=== PATIENT | male | born 1980 | race Caucasian/White ===

== ENCOUNTER 2017-05-06 11:00 | Emergency (ER) | payer OTHER ==
[~2017-05-06] VITALS: Ht 180.3 cm; Wt 93.3 kg
[~2017-05-06 11:00] MED LIST: IBUP800T23 PO; ROBA750T3 PO
[2017-05-06 11:06] VITALS: BP 119/80; PULSE 72; RESP 16; TEMP 97.8; O2SAT 97
[2017-05-06] MEDS ORDERED: SODIUM CHLOR 0.9% 1000 ML INJ 1,000 ML IV SCH (11:20)
--- NOTE | 2017-05-06 11:25 | PD ---
HPI Chief Complaint: Abdominal Pain Time Seen by Provider: 11:20 Travel History International Travel<30 days: No Contact w/Intl Traveler<30days: No Traveled to known affect area: No History of Present Illness HPI 36-year-old male with history of chronic headaches which he states wants to the family, presents to the ER today with 1 week history of nausea, vomiting, diarrhea, and 8 out of 10 headaches. He states that it is not going away. He states he could not go to work today because he did not feel like having to deal with a headache at work. He denies any fevers, has not had any vomiting since Saturday. He states that his daughter had gastroenteritis and similar symptoms last week. He has also had coughing, nasal congestion. He denies any chest pains, shortness of breath, or any other issues. Modifying Factors: None Associated Signs & Symptoms: Headaches, nausea, vomiting, diarrhea for one week Risk Factors: Sick contact, history of chronic headaches PFSH Past Medical History ADD: Yes Anxiety: Yes Depression: Yes Diminished Hearing: No Headaches: Yes Immunizations Current: Yes Tetanus Vaccination: < 5 Years Influenza Vaccination: No Past Surgical History Other Surgery: Yes (HERNIA AN ) Social History Alcohol Use: Yes (Occ.) Tobacco Use: Yes (1 PPD) Substance Use: No Allergies-Medications (Allergen,Severity, Reaction): Coded Allergies: No Known Allergies (Verified , 05/06/17) Reported Meds & Prescriptions Reported Meds & Active Scripts Active No Active Prescriptions or Reported Medications Review of Systems Except as stated in HPI: all other systems reviewed are Neg Physical Exam Narrative GENERAL: Well-developed young white male patient currently in mild distress. Awake and oriented 3. Sitting in a lighted room without issues. SKIN: Focused skin assessment warm/dry. HEAD: Atraumatic. Normocephalic. EYES: Pupils equal and round. No scleral icterus. No injection or drainage. ENT: No nasal bleeding or discharge. Mucous membranes pink and moist. NECK: Trachea midline. No JVD. Supple. CARDIOVASCULAR: Regular rate and rhythm. No murmur appreciated. RESPIRATORY: No accessory muscle use. Clear to auscultation. Breath sounds equal bilaterally. GASTROINTESTINAL: Abdomen soft, non-tender, nondistended. Hepatic and splenic margins not palpable. MUSCULOSKELETAL: No obvious deformities. No clubbing. No cyanosis. No edema. NEUROLOGICAL: Awake and alert. No obvious cranial nerve deficits. Motor grossly within normal limits. Normal speech. PSYCHIATRIC: Appropriate mood and affect; insight and judgment normal. Data Data Last Documented VS Vital Signs Date Time Temp Pulse Resp B/P Pulse Ox O2 Delivery O2 Flow Rate FiO2 05/06/17 11:30 97 Room Air 05/06/17 11:15 18 05/06/17 11:06 97.8 72 119/80 Orders Complete Blood Count With Diff (05/06/17 11:20) Comprehensive Metabolic Panel (05/06/17 11:20) Lipase (05/06/17 11:20) Urinalysis - C+S If Indicated (05/06/17 11:20) Iv Access Insert/Monitor (05/06/17 11:20) Ecg Monitoring (05/06/17 11:20) Oximetry (05/06/17 11:20) Sodium Chlor 0.9% 1000 Ml Inj (Ns 1000 M (05/06/17 11:20) Sodium Chloride 0.9% Flush (Ns Flush) (05/06/17 11:30) Metoclopramide Inj (Reglan Inj) (05/06/17 11:30) Diphenhydramine Inj (Benadryl Inj) (05/06/17 11:30) Ct Brain W/O Iv Contrast(Rout) (05/06/17 11:22) Labs Laboratory Tests Test 05/06/17 05/06/17 11:30 11:40 White Blood Count 10.6 TH/MM3 Red Blood Count 4.92 MIL/MM3 Hemoglobin 14.4 GM/DL Hematocrit 42.7 % Mean Corpuscular Volume 86.9 FL Mean Corpuscular Hemoglobin 29.3 PG Mean Corpuscular Hemoglobin 33.7 % Concent Red Cell Distribution Width 13.1 % Platelet Count 243 TH/MM3 Mean Platelet Volume 8.1 FL Neutrophils (%) (Auto) 68.2 % Lymphocytes (%) (Auto) 24.4 % Monocytes (%) (Auto) 6.6 % Eosinophils (%) (Auto) 0.1 % Basophils (%) (Auto) 0.7 % Neutrophils # (Auto) 7.2 TH/MM3 Lymphocytes # (Auto) 2.6 TH/MM3 Monocytes # (Auto) 0.7 TH/MM3 Eosinophils # (Auto) 0.0 TH/MM3 Basophils # (Auto) 0.1 TH/MM3 CBC Comment DIFF FINAL Differential Comment Sodium Level 142 MEQ/L Potassium Level 3.7 MEQ/L Chloride Level 107 MEQ/L Carbon Dioxide Level 27.4 MEQ/L Anion Gap 8 MEQ/L Blood Urea Nitrogen 14 MG/DL Creatinine 0.83 MG/DL Estimat Glomerular Filtration 105 ML/MIN Rate Random Glucose 127 MG/DL Calcium Level 8.7 MG/DL Total Bilirubin 0.3 MG/DL Aspartate Amino Transf 16 U/L (AST/SGOT) Alanine Aminotransferase 38 U/L (ALT/SGPT) Alkaline Phosphatase 66 U/L Total Protein 7.5 GM/DL Albumin 3.6 GM/DL Lipase 88 U/L Urine Collection Type CLEAN CATCH Urine Color YELLOW Urine Turbidity SLIGHT Urine pH 5.5 Urine Specific [place] 1.030 Urine Protein NEG mg/dL Urine Glucose (UA) NEG mg/dL Urine Ketones NEG mg/dL Urine Occult Blood MOD Urine Nitrite NEG Urine Bilirubin NEG Urine Leukocyte Esterase NEG Urine RBC 10-14 /hpf Urine Squamous Epithelial 0-5 /hpf Cells Urine Amorphous Sediment FEW Microscopic Urinalysis Comment CULT NOT INDICATED Urine Collection Time 1140 [facility] Medical Decision Making Medical Screen Exam Complete: Yes Emergency Medical Condition: Yes Medical Record Reviewed: Yes Interpretation(s) Laboratory Tests Test 05/06/17 05/06/17 11:30 11:40 Random Glucose 127 MG/DL (74-106) Urine Occult Blood MOD (NEG) Urine RBC 10-14 /hpf (0-3) Last [address] 05/06/17 1122 Signed Impressions: Service Date/Time: Saturday, May 06, 2017 11:42 - CONCLUSION: Negative for an acute process. Tee Schaefer MD FACR Differential Diagnosis Headaches, nausea, vomiting, diarrheaviral syndrome versus migraine headaches versus dehydration versus acute intracranial processes Narrative Course Patient states that his headaches have never been worked up before but his father has had similar headaches as well throughout his life. CT of the brain did not reveal any signs of acute processes. Lab work is otherwise unremarkable. Vital signs are stable in the ER. Patient has no meningeal signs and suspecting meningitis in this case. Symptoms are more indicative of a acute on chronic headache. Patient is conversant and well-appearing in the ER. I have talked to the patient about obtaining further studies such as a lumbar puncture in order to rule out possibility of other acute processes. However, considering the clinical picture, and symptoms, the risks should be small. At this point, the patient was to defer the exam. My plan would be to give him further symptomatically relief for headaches. Return for worsening in symptoms as necessary. Follow-up with primary care physician. The plan was discussed with the patient and he states understanding. Diagnosis Primary Impression: Headache Med/Other Pt SpecificInfo: Prescription(s) given Scripts Ibuprofen (Motrin Ib)200 Mg [id number] Mg PO Q6HR PRN (PAIN SCALE 1 TO 10) #21 Prov:Misbah Granger MD 05/06/17 Promethazine (Phenergan)25 Mg [id number] Mg PO Q6H PRN (NAUSEA OR VOMITING) #7 TAB Ref 0 Prov:Misbah Granger MD 05/06/17 Disposition: 01 DISCHARGE HOME Condition: Stable Misbah Granger MD May 06, 2017 11:25
[2017-05-06 11:30] VITALS: O2SAT 97
[2017-05-06] MEDS ORDERED: METOCLOPRAMIDE HCL 10 MG/2 ML VIAL IV PUSH ONE (11:30)
[2017-05-06] MEDS ORDERED: SODIUM CHLORIDE 0.9% FLUSH 10 ML FLUSH IV FLUSH PRN (11:30)
[2017-05-06] MEDS ORDERED: diphenhydrAMINE HCL 50 MG/ML VIAL IV PUSH ONE (11:30)
[2017-05-06 11:45] LABS: AUTOMATED NEUTROPHIL # 7.2 TH/MM3 (1.8-7.7); BASOPHIL # 0.1 TH/MM3 (0-0.2); BASOPHIL % 0.7 % (0.0-2.0); EOSINOPHIL % 0.1 % (0.0-4.0); HEMATOCRIT 42.7 % (39.0-51.0); HEMO FLAGS DIFF FINAL; LYMPH % 24.4 % (9.0-44.0); LYMPHOCYTE # 2.6 TH/MM3 (1.0-4.8); MEAN CELL VOLUME 86.9 FL (80.0-100.0); MEAN CORPUSCULAR HEMOGLOBIN 29.3 PG (27.0-34.0); MEAN CORPUSCULAR HGB CONC 33.7 % (32.0-36.0); MONO % 6.6 % (0.0-8.0); NEUT % 68.2 % (16.0-70.0); PLATELET COUNT 243 TH/MM3 (150-450); RED BLOOD COUNT 4.92 MIL/MM3 (4.50-5.90); RED CELL DISTRIBUTION WIDTH 13.1 % (11.6-17.2); WHITE BLOOD COUNT 10.6 TH/MM3 (4.0-11.0)
[2017-05-06 11:46] LABS: GLUCOSE,URINE NEG (NEG); KETONE, URINE NEG (NEG); NITRITE,URINE NEG (NEG); PH, URINE 5.5 (5.0-8.5)
[2017-05-06 12:00] LABS: BLOOD, URINE MOD (NEG)
[2017-05-06 12:02] LABS: CHLORIDE 107 MEQ/L (98-107); POTASSIUM 3.7 MEQ/L (3.5-5.1); SODIUM (NA) 142 MEQ/L (136-145)
[2017-05-06 12:04] LABS: METHOD OF COLLECTION CLEAN CATCH; URINE COLOR YELLOW (YELLW/STRAW)
[2017-05-06 12:05] LABS: COMMENT (UR) CULT NOT INDICATED; COMMENT2 (UR) MUCOUS PRESENT; CULTURE IF INDICATED CULT NOT INDICATED; SQUAMOUS EPITHELIAL CELL URINE 0-5 /hpf (0-5)
[2017-05-06 12:09] LABS: ANION GAP 8 MEQ/L (5-15); BICARBONATE 27.4 MEQ/L (21.0-32.0); BLOOD UREA NITROGEN 14 MG/DL (7-18)
[2017-05-06 12:12] LABS: ALT (GPT) 38 U/L (12-78); AST (GOT) 16 U/L (15-37); GLOMERULAR FILTRATION RATE 105 ML/MIN (>89)
[2017-05-06 12:13] LABS: TOTAL BILIRUBIN ADULT 0.3 MG/DL (0.2-1.0)
[2017-05-06 12:15] LABS: ALKALINE PHOSPHATASE 66 U/L (45-117)
--- NOTE | 2017-05-06 12:20 | RADHPO ---
EXAM DATE/TIME: 05/06/2017 11:42 [facility] COMPARISON: No previous studies available for comparison. INDICATIONS : Headache. RADIATION DOSE: 55.83 CTDIvol (mGy) MEDICAL HISTORY : None SURGICAL HISTORY : None. ENCOUNTER: Initial ACUITY: 1 day PAIN SCALE: 5/10 LOCATION: cranial TECHNIQUE: Multiple contiguous axial images were obtained of the head. Using automated exposure control and adj ustment of the mA and/or kV according to patient size, radiation dose was kept as low as reasonably a chievable to obtain optimal diagnostic quality images. FINDINGS: CEREBRUM: The ventricles are normal for age. No evidence of midline shift, mass lesion, hemorrhage or acute in farction. No extra-axial fluid collections are seen. POSTERIOR FOSSA: The cerebellum and brainstem are intact. The 4th ventricle is midline. The cerebellopontine angle i s unremarkable. EXTRACRANIAL: The visualized portion of the orbits is intact. SKULL: The calvaria is intact. No evidence of skull fracture. CONCLUSION: Negative for an acute process. Tee Schaefer MD FACR on May 06, 2017 at 12:16 Board Certified Radiologist. This report was verified electronically.
[2017-05-06] MEDS ORDERED: PROM25TA10 PO ×2 (12:34→12:36)
[2017-05-06] MEDS ORDERED: IBUP-1129 PO ×2 (12:34→12:36)
[2017-05-06 12:40] VITALS: BP 140/65; PULSE 61; RESP 14; O2SAT 99
== END 2017-05-06 12:50 | disposition home or self-care (01) ==
LOC: PHED 11:00
DX: R51 Headache (principal); R11.2 Nausea with vomiting, unspecified; R19.7 Diarrhea, unspecified; F17.210 Nicotine dependence, cigarettes, uncomplicated
CPT/HCPCS: 70450; 80053; 81001; 83690; 85025; 96361; 96374; 96375; 99285; J1200; J2765; J7030